=== PATIENT | male | born 1975 | race Caucasian/White ===

== ENCOUNTER 2022-04-28 23:44 | Emergency (ER) | payer BC, OTHER ==
[2022-04-28 23:50] VITALS: BP 146/91
[2022-04-29] MEDS ORDERED: NS IV 1000 ML 1,000 ML IV STA (00:05)
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
[2022-04-29 00:22] LABS: BASOPHILS % (AUTO) 0 % (0-10); EOSINOPHILS % (AUTO) 0 % (0-10); HEMATOCRIT 38 % (40-54); HEMOGLOBIN 13.3 g/dL (13.3-17.7); LYMPHOCYTES # (AUTO) 0.2 10^3/uL (1.0-4.0); LYMPHOCYTES % (AUTO) 2 % (12-44); MEAN CORPUSCULAR HEMOGLOBIN 29 pg (25-34); MEAN CORPUSCULAR HGB CONC 35 g/dL (32-36); MEAN CORPUSCULAR VOLUME 83 fL (80-99); MEAN PLATELET VOLUME 9.1 fL (9.0-12.2); MONOCYTES # (AUTO) 0.6 10^3/uL (0.0-1.0); MONOCYTES % (AUTO) 6 % (0-12); NEUTROPHILS % (AUTO) 92 % (42-75); PLATELET COUNT 275 10^3/uL (130-400); WHITE BLOOD COUNT 9.8 10^3/uL (4.3-11.0)
[2022-04-29 00:36] LABS: BILIRUBIN,URINE NEGATIVE (NEGATIVE); CLARITY,URINE CLEAR; COLOR,URINE YELLOW; GLUCOSE, URINE (UA) NEGATIVE (NEGATIVE); KETONES,URINE NEGATIVE (NEGATIVE); LEUKOCYTE ESTERASE ,URINE NEGATIVE (NEGATIVE); NITRITE,URINE NEGATIVE (NEGATIVE); PROTEIN,URINE NEGATIVE (NEGATIVE)
[2022-04-29] MEDS ORDERED: KETOROLAC 30 MG/ML VIAL IVP STA (00:38)
[2022-04-29] MEDS ORDERED: morphine INJ 10 MG/ML 1ML (SYR OR VIAL) IVP STA ×2 (00:38→01:59)
[2022-04-29 00:55] LABS: INR 0.9 (0.8-1.4); PROTHROMBIN TIME PATIENT 12.8 SEC (12.2-14.7)
[2022-04-29 00:57] LABS: BUN/CREATININE RATIO 13; CARBON DIOXIDE 24 MMOL/L (21-32); CHLORIDE 104 MMOL/L (98-107); CREATININE SERUM 1.12 MG/DL (0.60-1.30); GFR ESTIMATED 83; POTASSIUM 3.9 MMOL/L (3.6-5.0); SODIUM 139 MMOL/L (135-145)
[2022-04-29 00:58] LABS: ALANINE AMINOTRANSFERASE 42 U/L (0-55); ALBUMIN 4.6 GM/DL (3.2-4.5); ALKALINE PHOSPHATASE 67 U/L (40-136); BILIRUBIN,TOTAL 0.3 MG/DL (0.1-1.0); CALCIUM 9.3 MG/DL (8.5-10.1); GLUCOSE 106 MG/DL (70-105); MAGNESIUM 1.9 MG/DL (1.6-2.4); TOTAL PROTEIN 7.1 GM/DL (6.4-8.2)
[2022-04-29 01:01] LABS: WBC,URINE RARE /HPF
[2022-04-29 01:02] LABS: BACTERIA,URINE NEGATIVE /HPF; CALCIUM OXALATE CRYSTALS,UR FEW /LPF; SQUAMOUS EPITHELIAL CELL,UR 0-2 /HPF
[2022-04-29 01:03] LABS: HYALINE CASTS, URINE 0-2 /LPF
[2022-04-29 01:05] LABS: BAND NEUTROPHILS 3 %; BASOPHILS % (MANUAL) 1 %; LYMPHOCYTES % (MANUAL) 2 %; MONOCYTES % (MANUAL) 2 %; NEUTROPHILS % (MANUAL) 91 %
[2022-04-29 01:06] LABS: PLATELET ESTIMATE NORMAL; RBC MORPH NORMAL; REACTIVE LYMPHOCYTES 1 %
[2022-04-29] MEDS ORDERED: ACHD5005 PO (01:09)
[2022-04-29] MEDS ORDERED: HYDR-3820 PO (02:01)
[2022-04-29 15:05] LABS: CREATINE KINASE 750 U/L (30-200)
[2022-04-29 15:16] LABS: CREATINE KINASE MB 7.9 NG/ML (<6.6)
== END 2022-04-29 02:15 | disposition home or self-care (01) ==
LOC: ER FS 23:49
DX: T75.4XXA Electrocution, initial encounter (principal); M25.511 Pain in right shoulder; R00.0 Tachycardia, unspecified; Z28.310 Unvaccinated for COVID-19; W86.8XXA Exposure to other electric current, initial encounter
CPT/HCPCS: 36415; 80053; 81000; 82550; 82553; 83735; 83874; 84484; 85007; 85027; 85610; 85730; 93005; 93041

== ENCOUNTER → 2022-04-29 | Outpatient (CLI) | payer BC ==
[~2022-04-29] MED LIST: ACHD5005 PO; HYDR-3820 PO
== END ==
LOC: LAB FS 18:12
PROVIDERS: ATTEND Nurse Practitioner Family
DX: I10 Essential (primary) hypertension (principal); G35 Multiple sclerosis
CPT/HCPCS: 36415; 82550; 83874